=== PATIENT | male | born 1995 | race Caucasian/White ===

== ENCOUNTER 2018-08-08 00:05 | Emergency (ER) | payer OTHER ==
--- NOTE | 2018-08-08 00:29 | EDPHY ---
H & P Stated Complaint: Lip laceration Time Seen by Provider: 08/08/18 00:29 HPI/ROS: HPI CHIEF COMPLAINT: Fall, alcohol intoxication, forehead hematoma, lip laceration HISTORY OF PRESENT ILLNESS: 23-year-old male, presents to the emergency room by private vehicle after he went out drinking tonight, [birth year], he slipped and fell on ice, he sustained a right forehead hematoma or right upper lip laceration, and abrasions to the right side of his face. He arrives highly intoxicated with alcohol. Slurring his speech, smells of alcohol. Unsteady gait. But denies any neck pain or extremity pain. Past Medical History: Denies significant medical history Past Surgical History: Denies significant surgical history Social History: Denies drugs alcohol tobacco. Family History: Noncontributory ROS REVIEW OF SYSTEMS: 10 Systems were reviewed and negative with the exception of the elements mentioned in the history of present illness. Exam Constitutional intoxicated, smells of alcohol, triage nursing summary reviewed , vital signs reviewed, awake/alert. Eyes normal conjunctivae and sclera, EOMI, PERRLA. HENT head and neck: Hematoma to the right forehead, abrasions present right face, hematoma to the right upper orbit, upper lip laceration does not involve the vermilion border, vertically oriented 3 cm laceration, does not involve the vermilion border. No foreign body visualized. No malocclusion of bite. No mandibular jaw pain. Patient reports to me his dentition is intact, his lower front incisors are shortened, and eroded off the tops. He states this is normal for him. Additionally his upper front incisors the edge of them or chipped he reports to me this is normal. He does not think that he fractured his teeth. moist mucus membranes, no epistaxis, neck supple/ no meningismus, no raccoon eyes. Respiratory clear to auscultation bilaterally, normal breath sounds, no respiratory distress, no wheezing. Cardiovascular rate normal, regular rhythm, no murmur, no edema, distal pulses normal. Gastrointestinal soft, non-tender, no rebound, no guarding, normal bowel sounds, no distension, no pulsatile mass. Genitourinary no CVA tenderness. Musculoskeletal no midline vertebral tenderness, full range of motion, no calf swelling, no tenderness of extremities, no meningismus, good pulses, neurovascularly intact. Skin pink, warm, & dry, no rash, skin atraumatic. Neurologic awake, alert and oriented x 3, AAOx3, moves all 4 extremities equally, motor intact, sensory intact, CN II-XII intact, normal cerebellar, normal vision, normal speech. Psychiatric normal mood/affect. Heme/Lymph/Immune no lymphadenopathy. Differential Diagnosis: Includes but is not limited to acute alcohol intoxication, lip laceration, forehead hematoma, periorbital hematoma Medical Decision Making: Plan for this patient: CT scan head without contrast, , and repair his lip laceration. Re-evaluation: CT scan head without contrast faxed to me by direct Radiology at 1:40 a.m. No acute abnormality. Laceration Repair Procedure: Verbal Consent was obtained, Under sterile conditions, The patient had lidocaine without epinephrine used approximately 4ccs to local anesthetize the Right upper lip vertical 3CM, does not involve the vermilion boerder Laceration. The wound was copiously irrigated with sterile fluid, the wound was explored for foreign bodies there were none visualized, the wound was explored with a sterile glove to the base. There are no deep structures involved, including no arterial injury. TWO 6.O PROLENE interrupted Sutures and additionally a 5.O Adbsorbable rapide placed were placed in this patient's laceration. He had good close approximation of the wound edges. He Tolerated this well. 0448: Patient intoxicated with alcohol. Been resting here comfortably sobering. Patient arrives highly intoxicated with alcohol. Fell at some point sustained a lip laceration. Forehead hematoma and abrasion to the right side of his face. The patient CT scan of the head is unremarkable for acute traumatic injury Patient's lip laceration is repaired please see above. Patient understands to have sutures removed in 7 days. Return precautions discussed with the patient. Return to the emergency room if worsening headache, vomiting, not doing well. [id number]: Patient's breath alcohol 154. Patient has been observed here in the emergency room due to his high alcohol intoxication. He has been here for 5 hr. His breath alcohol this time of discharge 5:15 a.m. Is 154. His lip lacerations been repaired by myself. Understands return emergency room in 1 week to have sutures removed He has been asking repeatedly to be discharged from the emergency room. He was too intoxicated to safely be discharged and observed here for multiple hours. At 5:15 a.m. Is now sober. Ambulatory with a steady gait. Answers my questions appropriately I spoke with him given follow-up instructions His CT scan of his head that he had earlier for fall and alcohol intoxication does not show any acute bleed or skull fracture. Patient was somewhat upset be in emergency room for this long. However explained to him that he was intoxicated highly 5 hr ago was unable to ambulate safely and unable to be discharged safely. Now that he is sober can be safely discharged. Return precautions discussed. Source: Patient - Personal History Current Tetanus/Diphtheria Vaccine: Yes Current Tetanus Diphtheria and Acellular Pertussis (TDAP): Yes - Medical/Surgical History Hx Asthma: No Hx Chronic Respiratory Disease: No Hx Diabetes: No Hx Cardiac Disease: No Hx Renal Disease: No Hx Cirrhosis: No Hx Alcoholism: No Hx HIV/AIDS: No Hx Splenectomy or Spleen Trauma: No - Social History Smoking Status: Never smoked Constitutional: Initial Vital Signs Temperature (C) 36.6 C 08/08/18 00:09 Heart Rate 113 H 08/08/18 00:09 Respiratory Rate 16 08/08/18 00:09 Blood Pressure 150/93 H 08/08/18 00:09 O2 Sat (%) 95 08/08/18 00:09 O2 Delivery Mode Room Air Allergies/Adverse Reactions: No Known Allergies Allergy (Unverified 08/08/18 00:13) Home Medications: Medication Instructions Recorded Unobtainable 08/08/18 Departure - Departure Disposition: Home, Routine, Self-Care Clinical Impression: Lip laceration Qualifiers: Encounter type: initial encounter Qualified Code(s): S01.511A - Laceration without foreign body of lip, initial encounter Alcohol intoxication Qualifiers: Complication of substance-induced condition: uncomplicated Qualified Code(s): F10.920 - Alcohol use, unspecified with intoxication, uncomplicated Concussion Qualifiers: Encounter type: initial encounter Loss of consciousness presence/duration: without LOC Qualified Code(s): S06.0X0A - Concussion without loss of consciousness, initial encounter Condition: Good Instructions: Care For Your Stitches (ED), Laceration (ED), Concussion (ED), Head Injury (ED), Alcohol Intoxication (ED) Additional Instructions: 1. Your sutures need to be removed in 7 days. 2. Please return here to the emergency room to have your sutures removed. 3. You have 2 sutures that need to be removed and 1 that is absorbable. 4. Keep the wound clean, dry and intact. Referrals: Patient,NotPresent [Unknown] - As per Instructions
[2018-08-08 05:21] VITALS: BP 130/80
== END 2018-08-08 05:30 | disposition home or self-care (01) ==
PROC: 0CQ0XZZ Repair Upper Lip, External Approach (ICD-10-PCS; principal; 2018-08-08)
DX: S06.0X0A Concussion without loss of consciousness, initial encounter (principal); S01.511A Laceration without foreign body of lip, initial encounter; F10.920 Alcohol use, unspecified with intoxication, uncomplicated; W00.0XXA Fall on same level due to ice and snow, initial encounter; Y92.9 Unspecified place or not applicable; Y99.9 Unspecified external cause status; Y93.9 Activity, unspecified